=== PATIENT | female | born 1990 | race African-American/Black ===

== ENCOUNTER 2025-03-13 08:26 | Emergency (ER) | payer SELFPAY ==
[~2025-03-13] VITALS: Ht 170.2 cm; Wt 72.1 kg
[2025-03-13] MEDS ORDERED: ONDANSETRON HCL/PF 4 MG/2 ML VIAL ONE (08:46)
[2025-03-13] MEDS ORDERED: DICYCLOMINE HCL INJ 20 MG/2 ML AMPUL IM ONE (08:46)
[2025-03-13] MEDS ORDERED: MORPHINE SULFATE INJ 4 MG/ML DISP.SYRIN ONE (08:46)
[2025-03-13] MEDS: DICYCLOMINE HCL INJ 20 MG/2 ML AMPUL IM ONE (09:02)
[2025-03-13] MEDS: IV NS 0.9% 1,000 ML BAG IV ONE (09:02)
[2025-03-13] MEDS: MORPHINE SULFATE INJ 2 MG/ML DISP.SYRIN IV ONE (09:04)
[2025-03-13] MEDS: ONDANSETRON HCL/PF 4 MG/2 ML VIAL IVP ONE (09:04)
[2025-03-13 09:07] LABS: BASOPHILS # (AUTO) 0.1 K/uL (0.0-0.2); EOSINOPHILS % (AUTO) 0.5 % (0.0-6.0); HEMATOCRIT 35 % (33-45); HEMOGLOBIN 11.4 g/dL (11.5-14.8); LYMPHOCYTES # (AUTO) 1.4 K/uL (0.8-4.8); LYMPHOCYTES % (AUTO) 17.4 % (20.0-44.0); MEAN CORPUSCULAR HEMOGLOBIN 22 PG (26.0-33.0); MEAN CORPUSCULAR HGB CONC 32 g/dl (31.0-36.0); MEAN CORPUSCULAR VOLUME 69 fL (82-100); MONOCYTES # (AUTO) 0.5 K/uL (0.1-1.30); MONOCYTES % (AUTO) 6.1 % (2.0-12.0); NEUTROPHILS # (AUTO) 5.9 K/uL (1.8-8.9); PLATELET COUNT (AUTO) 375 K/uL (150-450); RED CELL DISTRIBUTION WIDTH 16.4 % (11.5-15.0); WHITE BLOOD COUNT (AUTO) 7.9 K/uL (4.3-11.0)
[2025-03-13 09:08] LABS: CALCIUM, SERUM 9.2 mg/dL (8.5-10.1); CREATININE 0.9 mg/dL (0.6-1.3); POTASSIUM 3.9 mmol/L (3.5-5.1)
[2025-03-13 09:14] LABS: ALBUMIN 4.5 g/dL (3.4-5.0); BILIRUBIN,DIRECT 0.1 mg/dL (0.0-0.2); BILIRUBIN,TOTAL 0.4 mg/dL (0.2-1.0); TOTAL PROTEIN, SERUM 8.8 g/dL (6.4-8.2)
[2025-03-13] MEDS ORDERED: HYDROMORPHONE 1 MG/1 ML DISP.SYRIN ONE (09:36)
[2025-03-13] MEDS: HYDROMORPHONE 1 MG/1 ML DISP.SYRIN IV ONE (09:40)
[2025-03-13] MEDS ORDERED: NAPR-1164 PO (12:57)
[2025-03-13] MEDS ORDERED: TAMS-12 PO (12:57)
[2025-03-13 13:14] LABS: APPEARANCE,URINE CLEAR (CLEAR); BILIRUBIN,URINE NEGATIVE (NEGATIVE); BLOOD, URINE TRACE-INTA Ery/uL (NEGATIVE); COLOR,URINE YELLOW (YELLOW); KETONES,URINE 2+ mg/dL (NEGATIVE); LEUKOCYTE ESTERASE ,URINE NEGATIVE (NEGATIVE); NITRITE, URINE NEGATIVE (NEGATIVE); PH,URINE 5.5 (5.0-8.0); PROTEIN,URINE NEGATIVE (NEGATIVE); UGLUCOSE NEGATIVE (NEGATIVE); UROBILINOGEN,URINE 0.2 EU/dL (0.2)
[2025-03-13 13:26] LABS: ADD URINE CULTURE NO; BACTERIA,URINE Rare /HPF (None Seen); MUCUS,URINE Rare /LPF (None Seen); WBC,URINE 0-2 /HPF (0-3)
[2025-03-13] MEDS ORDERED: HYDROCODONE/APAP 10/325MG TABLET ONE (13:58)
[2025-03-13] MEDS ORDERED: KETOROLAC TROMETHAMINE 15 MG/ML VIAL ONE (13:58)
[2025-03-13] MEDS: KETOROLAC TROMETHAMINE 15 MG/ML VIAL IV ONE (14:05)
[2025-03-13] MEDS: HYDROCODONE/APAP 10/325MG TABLET PO ONE (14:06)
[2025-03-13] MEDS ORDERED: HYDR-4275 PO (14:37)
[2025-03-13] MEDS ORDERED: NALO4SPR BNOSTRILS (14:37)
[2025-03-13 15:05] VITALS: BP 118/75; TEMP 97.7; O2SAT 99
[2025-03-13] MEDS ORDERED: OXYC-128 PO (15:58)
== END 2025-03-13 15:06 | disposition home or self-care (01) ==
LOC: ER 08:31
DX: R10.31 Right lower quadrant pain (principal); N20.1 Calculus of ureter; R10.2 Pelvic and perineal pain; Z90.49 Acquired absence of other specified parts of digestive tract; Z98.890 Other specified postprocedural states
CPT/HCPCS: 99285; 74176; 96374; 96375; 96361; 85025; 80048; 87086; 83690; 80076; 81001; 36415; 84702; 96372; J1885; J2270; J2405; J7030; J0500; J1171